=== PATIENT | male | born 1990 | race Caucasian/White ===

== ENCOUNTER 2025-09-19 12:49 | Emergency (ER) | payer BC, MEDICAID ==
[~2025-09-19] VITALS: Ht 177.8 cm; Wt 70.5 kg
[2025-09-19 13:06] VITALS: TEMP 97.5
--- NOTE | 2025-09-19 13:21 | ELECTROCARDIOGRAPH REPORT ---
[facility] Test Date: 2025-09-19 Test Time: 13:19:00 Pat Name: TORITO LIN Department: [facility]- Patient ID: [facility]-[id number] Room: Gender: M [employer]ist: : 1990 Requested By: RICH MELENDEZ Order Number: [id number] Reading MD: Measurements Intervals [place] Rate: 57 P: 79 MO: 169 QRS: 92 QRSD: 104 T: 36 QT: 406 QTc: 396 Interpretive Statements Sinus bradycardia Borderline right axis deviation Please click the below link to view image of tracing.
[2025-09-19 13:29] LABS: MEAN PLATELET VOLUME 7.5 FL (7.4-10.4); RED CELL DISTRIBUTION WIDTH 12.3 % (11.5-14.5)
--- NOTE | 2025-09-19 13:40 | RADIOLOGY REPORT ---
DI CHEST,SINGLE VIEW, HISTORY: CP COMPARISON: None None TECHNICAL DATA: 1 view of the chest was obtained. FINDINGS: Lines and tubes: None Cardiomediastinal silhouette: normal Pulmonary vasculature: normal Lung expansion: normal Lung airspace: normal Lung interstitium: normal Pleura: normal Pneumothorax: no Bones: Unremarkable Other: no IMPRESSION: No acute intrathoracic abnormality.
[2025-09-19 13:52] LABS: CREATININE 0.72 MG/DL (0.60-1.10); PRO BRAIN NATRIURETIC PEPTIDE < 30 PG/ML (0-125); TOTAL CARBON DIOXIDE 30.5 MMOL/L (24-32); eCRCL 146 ML/MIN; eGFR > 90 ML/MIN
--- NOTE | 2025-09-19 15:52 | Physician Documentation ---
History of Present Illness ~ Chief Complaint: Chest Wall Pain Stated Complaint: CHEST WALL PAIN Time Seen by MD: 15:11 OK to notify your PCP?: Yes Primary Medical Doctor: MONTSERRAT Source: patient, RN/MD Mode of Arrival: POV, Ambulatory HPI Patient is seen today with complaints of left-sided chest pain that is been going on for about a month and seems to be getting worse. Patient states he is under lot of stress at home with work and with family. Patient states he has never experienced chest pain like this before and states that chest pain is not associated with exertion and is not aggravated by exertion or relieved by rest. Patient denies any palpable nature to the pain. Patient denies any significant family history of cardiovascular disease and denies any personal history of heart disease. Patient denies any current shortness of breath or abdominal pain or nausea, vomiting, diarrhea. Patient has no other concern or complaint at this time. Tetanus within 5 Years?: No (> 5 YRS) Allergies: Coded Allergies: No Known Allergies (Unverified , 05/24/11) Active Prescriptions See Medication Reconciliation Form. Past Medical History Past Medical History: No Pertinent History Past Surgical History: no surgical history Drug Use: none Lives In: Home Review of Systems Constitutional: Denies: chills, fever, weakness Eyes: Denies: pain, blurred vision ENT: Denies: ear pain, nose pain, throat pain, mouth pain Respiratory: Denies: cough, shortness of breath Cardiovascular: Denies: chest pain, palpitations Gastrointestinal: Denies: abdominal pain, nausea, vomiting Genitourinary: Denies: burning, dysuria Male Genitalia: Denies: penile discharge, testicular pain Neurological: Denies: headache, dizziness Musculoskeletal: Denies: pain, swelling Integumentary: Denies: rash, lesions Allergic/Immunologic: Denies: hives, itching Hematologic/Lymphatic: Denies: no symptoms reported Psychiatric: Denies: depression, anxiety Physical Exam Vital Signs: Temperature: 97.5, Source: Temporal, Heart Rate: 59, Respiratory Rate: 16, BP: 125/83, Pulse Oximetry: 98, Weight: 70.500 Oxygen Flow Rate: 0 Physical Exam General: Awake and Alert, no acute distress. HEENT: Conjunctiva pink, Sclera clear, Mucus Membranes moist. Neck: Supple without masses and tenderness. Resp: Unlabored. Lungs clear to auscultation bilaterally. Heart: Regular Rate and rhythm, normal S1 and S2 without murmur, rub or gallop. Chest: Patient on exam does not have any significant reproducible chest pain on palpation of the sternum or ribs or anterior or lateral chest. Abdomen: Soft and non tender no organomegaly Extremities: No cyanosis,clubbing or edema. Skin: Warm and Dry. Progress Results/Orders Results/Orders Vital Signs 09/19/25 09/19/25 13:06 15:09 Temp 97.5 Pulse 59 Resp 18 16 B/P (MAP) 125/83 Pulse Ox 98 O2 Flow Rate 0 Laboratory Tests Test 09/19/25 12:20 White Blood Count 5.6 Red Blood Count 4.45 L Hemoglobin 14.8 Hematocrit 43.0 Mean Corpuscular Volume 96.6 Mean Corpuscular Hemoglobin 33.2 H Mean Corpuscular Hemoglobin Concent 34.4 Red Cell Distribution Width 12.3 Platelet Count 268 Mean Platelet Volume 7.5 Neutrophils (%) (Auto) 57.0 Lymphocytes (%) (Auto) 33.5 Monocytes (%) (Auto) 8.4 Eosinophils (%) (Auto) 0.8 Basophils (%) (Auto) 0.3 Neutrophils # (Auto) 3.2 Lymphocytes # (Auto) 1.9 Monocytes # (Auto) 0.5 Eosinophils # (Auto) 0.0 Basophils # (Auto) 0.0 CBC Comment Sodium Level 139 Potassium Level 4.1 Chloride Level 103 Carbon Dioxide Level 30.5 Anion Gap 6 L Blood Urea Nitrogen 14 Creatinine 0.72 Estimated GFR/1.73 m2 > 90 BUN/Creatinine Ratio 19.4 Glucose Level 106 H Calcium Level 8.9 Troponin I High Sensitivity < 4 L Troponin I High Sens Percent Delta Troponin I Hi Sens Absolute Change Pro-B-Type Natriuretic Peptide < 30 Albumin 4.3 Chemistry Comments EKG/XRAY/CT/US/VASC/MRI EKG : Additional Comment EKG interpreted by myself today shows regular rhythm and slightly bradycardic rate at 57 beats per minute with sinus bradycardia, no ST segment elevation and no sign of ischemia and no axis deviation. Chest X-Ray : Additional Comments Chest x-ray interpreted by myself today shows no large effusion, no large infiltrate, normal mediastinum. DIAGNOSTIC RADIOLOGY Patient: TORITO LIN Medical Record: [id number] [facility] : 1990, Age: 35 Sex: Male Location: ER Patient Status: REG ER Service Date/Time: 09/19/25/ 5 Ordering Physician: RICH MELENDEZ MD Exam: CHEST,SINGLE VIEW DI CHEST,SINGLE VIEW, HISTORY: CP COMPARISON: None None TECHNICAL DATA: 1 view of the chest was obtained. FINDINGS: Lines and tubes: None Cardiomediastinal silhouette: normal Pulmonary vasculature: normal Lung expansion: normal Lung airspace: normal Lung interstitium: normal Pleura: normal Pneumothorax: no Bones: Unremarkable Other: no IMPRESSION: No acute intrathoracic abnormality. Electronically Signed by:JONATHAN ROBERTSON MD Date & Time: 09/19/25 1338 Dictated by: JONATHAN ROBERTSON MD Dictation date and time: 09/19/25 1323 Primary Care Provider: NO PRIMARY CARE PROVIDER cc: RICH MELENDEZ MD ~ Medical Decision Making Additional information obtaine: N/A Findings Patient is seen today with complaints of left-sided chest pain that is been going on for about a month and seems to be getting worse. Patient states he is under lot of stress at home with work and with family. Patient states he has never experienced chest pain like this before and states that chest pain is not associated with exertion and is not aggravated by exertion or relieved by rest. Patient denies any palpable nature to the pain. Patient denies any significant family history of cardiovascular disease and denies any personal history of heart disease. Patient denies any current shortness of breath or abdominal pain or nausea, vomiting, diarrhea. Patient has no other concern or complaint at this time. Patient did have labs and EKG and chest x-ray that are all very reassuring. Patient's chest pain is likely due to anxiety. Patient will follow up with primary care for referral to therapy or counseling and/or possible referral to Cardiology for further consultation if needed. Patient will return to ED with any worsening, concerning or changing symptoms. Differential Dx:Considerations: Include: Chest wall contusion, Myocardial contusion, Pneumothorax, Pulmonary contusion, Rib fracture Additional Comment LA, GERD, Anxiety Departure Disposition: HOME / SELF CARE / HOMELESS Impression: Primary Impression: Chest pain Qualified Codes: R07.9 - Chest pain, unspecified Additional Impressions: Stress at work Stress at home Condition: Stable Discharge Instructions: Chest Wall Pain Additional Instructions: Patient did have labs and EKG and chest x-ray that are all very reassuring. Patient's chest pain is likely due to anxiety. Patient will follow up with primary care for referral to therapy or counseling and/or possible referral to Cardiology for further consultation if needed. Patient will return to ED with any worsening, concerning or changing symptoms. Departure Forms: Excuse form Work or School Excused From: Work Excuse beginning now through the following date: Sep 19, 2025 Referrals: NO PRIMARY CARE PROVIDER (PCP) Signature Scribe Signature: No scribe Attestation: No scribe SALVATORE WINKLER PAC Sep 19, 2025 15:52
[2025-09-19 16:08] VITALS: BP 114/73; PULSE 52; RESP 16; O2SAT 98
== END 2025-09-19 16:12 | disposition home or self-care (01) ==
LOC: ER 12:50
DX: R07.9 Chest pain, unspecified (principal); Z56.6 Other physical and mental strain related to work; Z63.8 Other specified problems related to primary support group
CPT/HCPCS: 36415; 71045; 80048; 83880; 84484; 85025; 93005; 99285